=== PATIENT | female | born 1955 | race Caucasian/White ===

== ENCOUNTER 2023-05-20 17:23 | Emergency (ER) | payer MEDICARE, SELFPAY ==
--- NOTE | 2023-05-20 17:33 | ED.URI ---
HPI - URI/Sore Throat General Chief Complaint: Upper Respiratory Infection Stated Complaint: Cough,Congestion Time Seen by Provider: 05/20/23 17:38 Source: patient, RN notes reviewed and old records reviewed Mode of arrival: ambulatory Limitations: no limitations History of Present Illness HPI Narrative: 68-year-old female presents to the [facility] with complaints of cough and congestion for 1-2 days. Has not had to use her albuterol. Denies shortness of breath. Does use her Dulera as prescribed States she does have Flonase at home but has not been using it. Denies fever Offered flu and COVID testing, patient declined Offer chest x-ray, patient declined Onset (ago): day(s) (1-2) Related Data Home Medications Medication Instructions Recorded Confirmed albuterol sulfate 90 mcg/actuation 2 puff inhalation PRN PRN 05/20/23 05/20/23 aerosol inhaler Shortness Of Breath Or Wheezing alendronate 70 mg tablet 70 mg PO DAILY 05/20/23 05/20/23 alprazolam 0.5 mg tablet 0.5 mg PO DAILY 05/20/23 05/20/23 bupropion HCl 300 mg 24 hr tablet, 300 mg PO DAILY 05/20/23 05/20/23 extended release estradiol 0.01% (0.1 mg/gram) 1 applic vaginal DAILY 05/20/23 05/20/23 vaginal cream mometasone-formoterol HFA 200 2 puff inhalation BID 05/20/23 05/20/23 mcg-5 mcg/actuation aerosol inhaler (Dulera) montelukast 10 mg tablet 10 mg PO HS 05/20/23 05/20/23 suvorexant 10 mg tablet (Belsomra) 10 mg PO HS 05/20/23 05/20/23 zolpidem 5 mg tablet 5 mg PO HS 05/20/23 05/20/23 Allergies Allergy/AdvReac Type Severity Reaction Status Date / Time No Known Allergies Allergy Verified 05/20/23 17:29 Review of Systems Review of Systems: All systems reviewed & are unremarkable except as noted in HPI and below Constitutional: Constitutional: Reports no additional constitutional complaints Eyes: Eyes: Reports no additional eye complaints ENT: Reports system reviewed and no additional complaints, except as documented Cardiovascular: Cardiovascular: Reports no additional cardiovascular complaints, Denies chest pain and Denies dyspnea Respiratory: Respiratory: Reports as per HPI, Denies chest congestion, Reports cough and Denies dyspnea Gastrointestinal: Gastrointestinal: Reports no additional gastrointestinal complaints, Denies abdominal pain, Denies nausea and Denies vomiting Musculoskeletal: Musculoskeletal: Reports no additional musculoskeletal complaints Integumentary/Breasts: Skin/Breast: Reports system reviewed and no additional complaints, except as docu Neurologic: Reports system reviewed and no additional complaints, except as documented Psychiatric: Psychiatric: Reports no additional psychiatric complaints Allergic/Immunologic: Allergic/Immunologic: Reports no additional allergic/immunologic complaints [facility] Past Medical History Medical History (Updated 05/20/23 @ 19:35 by Sarah Humphries, KEV) Anxiety Asthma Comments At the time of my signature, I reviewed and agree with the nursing past medical, surgical, social, and family history. There is no relevant family history pertinent to the patient complaint. Exam Const: General: cooperative, healthy appearing, comfortable, no acute distress, well developed, alert and well nourished Nutritional Appearance: well nourished Orientation/consciousness: patient oriented x3 Limitations: no limitations HENMT: Head: normal to inspection Ears: hearing grossly normal bilaterally, external ears normal, TM's normal bilaterally, EAC's normal and mastoids normal Face/Nose/Sinus: Normal external nose present, Normal nares present, Normal nasal mucous membranes and turbinates present, normal facial exam and face symmetric Face and sinus: normal facial exam, sinuses nontender and face symmetric Mouth: Yes Normal oral and palatal mucosa present, Yes lip normal, Yes tongue normal and Yes moist mucous membranes Throat: posterior oropharynx normal and uvula midline Eyes: General: appearance n
[2023-05-20 17:36] VITALS: BP 156/76; PULSE 93; RESP 18; TEMP 37.1; O2SAT 99
== END 2023-05-20 17:51 | disposition home or self-care (01) ==
PROVIDERS: Emergency Provider Nurse Practitioner; PCP Hospitalist
DX: J40 Bronchitis, not specified as acute or chronic (principal); Z79.899 Other long term (current) drug therapy
CPT/HCPCS: 99203; G0463

== ENCOUNTER 2024-01-27 15:21 | Emergency (ER) | payer MEDICARE, SELFPAY ==
[2024-01-27 15:37] VITALS: BP 130/67; PULSE 81; RESP 14; TEMP 37; O2SAT 97
--- NOTE | 2024-01-27 17:09 | ED.EYEPROB ---
HPI - Eye Problem General Chief complaint: Eye Problems Stated complaint: left eye red,itches,watering Time Seen by Provider: 01/27/24 15:45 Source: patient and RN notes reviewed Mode of arrival: ambulatory Limitations: no limitations History of Present Illness HPI Narrative: Patient presents today complaining of a 3 day history of left eye redness, itching and watering. Denies pain, foreign body sensation, vision changes. She has been using an old antibiotic drops, does not know the name, as well as an [id number] antihistamine drops, does not know the name. States neither of these are providing any relief. Related Data Home Medications Medication Instructions Recorded Confirmed albuterol sulfate 90 mcg/actuation 2 puff inhalation PRN PRN 05/20/23 01/27/24 aerosol inhaler Shortness Of Breath Or Wheezing alendronate 70 mg tablet 70 mg PO DAILY 05/20/23 01/27/24 alprazolam 0.5 mg tablet 0.5 mg PO DAILY 05/20/23 01/27/24 estradiol 0.01% (0.1 mg/gram) 1 applic vaginal DAILY 05/20/23 01/27/24 vaginal cream mometasone-formoterol HFA 200 2 puff inhalation BID 05/20/23 01/27/24 mcg-5 mcg/actuation aerosol inhaler (Dulera) montelukast 10 mg tablet 10 mg PO HS 05/20/23 01/27/24 bupropion HCl 150 mg 24 hr tablet, 150 mg PO DAILY 01/27/24 01/27/24 extended release lemborexant 5 mg tablet (Dayvigo) 5 mg PO DAILY 01/27/24 01/27/24 Allergies Allergy/AdvReac Type Severity Reaction Status Date / Time No Known Allergies Allergy Verified 01/27/24 15:24 Review of Systems Review of Systems: CONSTITUTIONAL: Denies body aches, fever, chills, or sweats. EYES: Denies visual changes, discharge.+ left eye redness, itching, and tearing ENT: Denies rhinorrhea, congestion, sore throat, or otalgia. CARDIOVASCULAR: Denies chest pain, palpitations, or edema. RESPIRATORY: Denies cough or dyspnea. GASTROINTESTINAL: Denies abdominal pain, nausea, vomiting, or diarrhea. GENITOURINARY: Denies dysuria or hematuria. SKIN: Denies rash, itching, or wounds. MUSCULOSKELETAL: Denies back pain, joint pain, or myalgia. NEUROLOGIC: Denies headache, numbness, tingling, or weakness. PSYCH: Denies depression or anxiety. [facility] Past Medical History Medical History Anxiety Asthma Comments At time of signature, I have reviewed and agree with nursing past medical, surgical, social and family history unless otherwise noted. Please see nursing chart for further information. There is no relevant family history pertinent to the presenting complaint Exam Narrative: GENERAL: Well-appearing, well-nourished, and in no acute distress. HEAD: Normocephalic, atraumatic. EYES: EOMI. PERRL. Right eye normal. Left eye: mildly injected conjunctiva with mild chemosis. No drainage noted. Irritation of the lower eyelid. Moderate tearing. False upper eyelashes noted. ENT: Mucous membranes pink and moist. NECK: Normal AROM. CHEST: No respiratory distress. EXTREMITIES: Normal range of motion. No edema. SKIN: Warm, dry, no rash. Capillary refill normal. Normal skin turgor. NEURO: No focal deficits. Alert and oriented x3. Gait steady. PSYCH: Normal affect. No signs of depression or anxiety. Course Course Level of Care: Express Care Visit Vital Signs Vital signs: Vital Signs Temperature 98.6 F 01/27/24 15:37 Pulse Rate 81 01/27/24 15:37 Respiratory Rate 14 01/27/24 15:37 Blood Pressure 130/67 01/27/24 15:37 Pulse Oximetry 97 01/27/24 15:37 Oxygen Delivery Room Air 01/27/24 15:37 Temperature 98.6 F 01/27/24 15:37 Pulse Rate 81 01/27/24 15:37 Respiratory Rate 14 01/27/24 15:37 Blood Pressure 130/67 01/27/24 15:37 Pulse Oximetry 97 01/27/24 15:37 Oxygen Delivery Room Air 01/27/24 15:37 Reviewed MDM - Eye Problem MDM Narrative Medical decision making narrative: Symptoms likely due to allergic conjunctivitis. Prescription
== END 2024-01-27 16:06 | disposition home or self-care (01) ==
PROVIDERS: Emergency Provider Nurse Practitioner; PCP Hospitalist
DX: H10.12 Acute atopic conjunctivitis, left eye (principal); J45.909 Unspecified asthma, uncomplicated; F41.9 Anxiety disorder, unspecified
CPT/HCPCS: 99213; G0463

== ENCOUNTER 2024-02-20 15:09 | Emergency (ER) | payer MEDICARE, SELFPAY ==
--- NOTE | 2024-02-20 15:20 | ED.SKABFB ---
HPI - Skin/Abscess/Foreign Bdy General Chief complaint: Skin/Abscess/Foreign Body Stated complaint: bite on right arm Time Seen by Provider: 02/20/24 15:20 Source: patient Mode of arrival: ambulatory Limitations: no limitations History of Present Illness HPI narrative: 68 yo F presents with c/o insect bite to R forearm for 3 days. No itching. Concerned for spider bite. Apply steroid cream with no relief. all systems reviewed and negative except as noted above. Related Data Home Medications Medication Instructions Recorded Confirmed albuterol sulfate 90 mcg/actuation 2 puff inhalation PRN PRN 05/20/23 01/27/24 aerosol inhaler Shortness Of Breath Or Wheezing alendronate 70 mg tablet 70 mg PO DAILY 05/20/23 01/27/24 alprazolam 0.5 mg tablet 0.5 mg PO DAILY 05/20/23 01/27/24 estradiol 0.01% (0.1 mg/gram) 1 applic vaginal DAILY 05/20/23 01/27/24 vaginal cream mometasone-formoterol HFA 200 2 puff inhalation BID 05/20/23 01/27/24 mcg-5 mcg/actuation aerosol inhaler (Dulera) montelukast 10 mg tablet 10 mg PO HS 05/20/23 01/27/24 bupropion HCl 150 mg 24 hr tablet, 150 mg PO DAILY 01/27/24 01/27/24 extended release lemborexant 5 mg tablet (Dayvigo) 5 mg PO DAILY 01/27/24 01/27/24 suvorexant 15 mg tablet (Belsomra) mg PO 02/20/24 Allergies Allergy/AdvReac Type Severity Reaction Status Date / Time No Known Allergies Allergy Verified 02/20/24 15:22 Review of Systems Review of Systems: CONSTITUTIONAL: Denies fever, chills, or sweats. EYES: Denies visual changes, redness, or discharge. ENT: Denies rhinorrhea, congestion, sore throat, or otalgia. CARDIOVASCULAR: Denies chest pain, palpitations, or edema. RESPIRATORY: Denies cough or dyspnea. GASTROINTESTINAL: Denies abdominal pain, nausea, vomiting, or diarrhea. GENITOURINARY: Denies dysuria or hematuria. SKIN: Denies rash or itching. Reports insect bite to right forearm. MUSCULOSKELETAL: Denies back pain, joint pain, or myalgia. NEUROLOGIC: Denies headache, numbness, or weakness. PSYCHIATRIC: Denies anxiety or depression. All other systems reviewed are negative, except as documented in HPI. [facility] Past Medical History Medical History Anxiety Asthma Comments At time of signature, agree with nursing past medical, surgical, social and family history. There is no relevant family history pertinent to the presenting complaint. Exam Narrative: GENERAL: This is a well-nourished, well-developed patient, in no apparent distress. HEAD: normocephalic, atraumatic. EYES: PERRL. Sclera clear/white. Vision is grossly intact. EARS: External ears normal NOSE: External nose normal NECK: Neck supple, non-tender without lymphadenopathy, masses or thyromegaly. CARDIOVASCULAR: Regular rate and rhythm without murmurs, gallops, or rubs. RESPIRATORY: Clear to auscultation. Breath sounds equal bilaterally. No wheezes, rales, or rhonchi. SKIN: warm, Dry, intact with no suspicious lesions or rash, good texture and turgor. 2 cm diameter insect bites to posterior aspect of right forearm. Mild erythema. No fluctuance or induration. Scab to center. No necrosis noted. NEURO: awake, alert, and oriented to person, place and time. There were no obvious focal neurologic abnormalities. EXTREMITIES: No joint tenderness, effusion, or edema noted. Course Course Level of Care: Express Care Visit Vital Signs Vital signs: Vital Signs Temperature 36.9 C 02/20/24 15:22 Pulse Rate 87 02/20/24 15:22 Respiratory Rate 16 02/20/24 15:22 Blood Pressure 117/78 02/20/24 15:22 Pulse Oximetry 100 02/20/24 15:22 Oxygen Delivery Room Air 02/20/24 15:22 Temperature 36.9 C 02/20/24 15:27 Pulse Rate 117 H 02/20/24 15:27 Respiratory Rate 16 02/20/24 15:27 Blood Pressure 117/78 02/20/24 15:27 Pulse Oximetry 100 02/20/24 15:27 Oxygen Delivery Room Air 02/20/24 15:27 Reviewed
[2024-02-20 15:22] VITALS: BP 117/78; PULSE 87; RESP 16; TEMP 36.9; O2SAT 100
[2024-02-20 15:27] VITALS: BP 117/78; PULSE 117; RESP 16; TEMP 36.9; O2SAT 100
== END 2024-02-20 15:45 | disposition home or self-care (01) ==
PROVIDERS: Emergency Provider Nurse Practitioner Family; PCP Hospitalist
DX: S50.861A Insect bite (nonvenomous) of right forearm, initial encounter (principal); L08.9 Local infection of the skin and subcutaneous tissue, unspecified; W57.XXXA Bitten or stung by nonvenomous insect and other nonvenomous arthropods, initial encounter; J45.909 Unspecified asthma, uncomplicated; F41.9 Anxiety disorder, unspecified
CPT/HCPCS: 99213; G0463

== ENCOUNTER 2024-11-07 10:34 | Emergency (ER) | payer MEDICARE, SELFPAY ==
--- NOTE | 2024-11-07 10:35 | ED.URI ---
HPI - URI/Sore Throat General Chief Complaint: Upper Respiratory Infection Stated Complaint: cough Time Seen by Provider: 11/07/24 10:35 Source: patient Mode of arrival: ambulatory Limitations: no limitations History of Present Illness HPI Narrative: Amara is a 69-year-old female patient presenting to the clinic today with complaints of a productive cough and chest congestion x3 days. She reports has history of asthma/COPD. Is a productive cough. States she has been wheezing. Denies any chest pain or shortness of breath currently. No fevers. Related Data Home Medications ?Medication ?Instructions ?Recorded ?Confirmed ?Last Taken ?Type albuterol sulfate 90 mcg/actuation 2 puff inhalation PRN PRN 05/20/23 01/27/24 Unknown History aerosol inhaler Shortness Of Breath Or Wheezing alendronate 70 mg tablet 70 mg PO DAILY 05/20/23 01/27/24 Unknown History alprazolam 0.5 mg tablet 0.5 mg PO DAILY 05/20/23 01/27/24 Unknown History estradiol 0.01% (0.1 mg/gram) 1 applic vaginal DAILY 05/20/23 01/27/24 Unknown History vaginal cream mometasone-formoterol HFA 200 2 puff inhalation BID 05/20/23 01/27/24 Unknown History mcg-5 mcg/actuation aerosol inhaler (Dulera) montelukast 10 mg tablet 10 mg PO HS 05/20/23 01/27/24 Unknown History bupropion HCl 150 mg 24 hr tablet, 150 mg PO DAILY 01/27/24 01/27/24 Unknown History extended release lemborexant 5 mg tablet (Dayvigo) 5 mg PO DAILY 01/27/24 01/27/24 Unknown History suvorexant 15 mg tablet (Belsomra) mg PO 02/20/24 Unknown History valacyclovir 1 gram tablet mg 09/16/24 Unknown History Allergies Allergy/AdvReac Type Severity Reaction Status Date / Time Penicillins Allergy Mild Rash Verified 11/07/24 10:52 Review of Systems Review of Systems: Pertinent positives per HPI. Patient denies any fever, chills, rash, headache, visual changes, dizziness, shortness of breath, chest pain, palpitations, nausea, vomiting, diarrhea, constipation, abdominal pain, or any urinary issues. [facility] Past Medical History Medical History Anxiety Asthma Comments At the time of my signature, I reviewed and agree with the nursing past medical, surgical, social, and family history. There is no relevant family history pertinent to the patient complaint. Exam Narrative: General: Well-developed, well nourished, in no apparent distress Head: Normocephalic, atraumatic Eyes: Pupils equally round and reactive to light bilaterally, EOM intact, sclera and conjunctive clear, no discharge, lids normal Ears: TMs intact and clear, ear canals clear, no drainage, grossly hearing normal. Nose: Nares patent, clear discharge, no inflammation, no sinus tenderness. Mouth: Oral pharynx without lesions or masses, good dentition, MMM. Neck: Supple, trachea midline, no enlargement of anterior or posterior cervical nodes, no thyroid masses or goiter palpable. Cardio: Regular rate and rhythm, s1 and s2 normal, no murmur appreciated. Resp: Lung sounds diminished in the bases, no rhonchi, rales, wheezing or rubs Course Course Emergency Course: Portions of this record may have been created with voice recognition software. Level of Care: Express Care Visit Vital Signs Vital signs: Vital Signs Temperature 36.8 C 11/07/24 10:51 Pulse Rate 79 11/07/24 10:51 Respiratory Rate 16 11/07/24 10:51 Blood Pressure 126/67 11/07/24 10:51 Pulse Oximetry 97 11/07/24 10:51 Oxygen Delivery Room Air 11/07/24 10:51 Temperature 36.8 C 11/07/24 10:51 Pulse Rate 79 11/07/24 10:51 Respiratory Rate 16 11/07/24 10:51 Blood Pressure 126/67 11/07/24 10:51 Pulse Oximetry 97 11/07/24 10:51 Oxygen Delivery Room Air 11/07/24 10:51 Vital signs reviewed MDM - URI/Sore Throat MDM Narrative Medical decision making narrative: At the time of visit patient is resting comfortably on the exam table. Patient appears to be nontoxic. Plan: I suspect patient has COPD/asthma exacerbation. Prescription for prednisone and azithromycin was sent to the pharmacy. Supportive measures were discussed with the patient and they voiced understanding discharge instructions and agrees to treatment plan. Return precautions reviewed Differential Diagnosis Differential diagnosis: Likely upper respiratory infection, otitis media, sinusitis, viral infection, bronchitis, influenza, pharyngitis and other (COVID) Discharge Plan Discharge Clinical Impression: Asthma exacerbation in COPD Patient Disposition: Home, Self-Care Condition: Stable Instructions: Antibiotic Form, Asthma (ED) Additional Instructions: Take prescription medications only as prescribed-prednisone and azithromycin Increase fluids and stay well hydrated Tylenol/motrin for pain/fever Flonase and OTC antihistamines as directed Vicks vapor rub to open sinuses Sinus rinses for congestion Cepacol spray, cough drops, throat lozenges, warm tea with honey/lemon, gargle salt water to soothe throat BRAT diet for diarrhea Clear liquids x 24 hours then advance as tolerated for nausea/vomiting Go to the ED if you develop a worsening in your condition- high fever not controlled by Tylenol or Motrin, dehydration, weakness, lethargy, shortness of breath, or chest pain. Follow up with your PCP in 3-5 days if symptoms persist. Patient Language: Persian Prescriptions: New azithromycin 250 mg tablet See Rx Instructions .ROUTE .COMPLEX Qty: 6 0RF Rx Instructions: For 250 mg dose pack: take 500 mg today (day 1), then 250 mg for 4 days (days 2-5) prednisone 20 mg tablet 40 mg PO DAILY 5 Days Qty: 10 0RF No Action alendronate 70 mg tablet 70 mg PO DAILY alprazolam 0.5 mg tablet 0.5 mg PO DAILY montelukast 10 mg tablet 10 mg PO HS estradiol 0.01 % (0.1 mg/gram) cream 1 applic VAGINAL DAILY albuterol sulfate 90 mcg/actuation HFA aerosol inhaler 2 puff INHALATION PRN PRN (Reason: Shortness Of Breath Or Wheezing) Dulera 200-5 mcg/actuation HFA aerosol inhaler 2 puff INHALATION BID bupropion HCl 150 mg tablet extended release 24 hr 150 mg PO DAILY Dayvigo 5 mg tablet 5 mg PO DAILY epinastine 0.05 % drops 1 drp LEFT EYE Q12H PRN (Reason: allergic symptoms) Qty: 5 0RF Belsomra 15 mg tablet PO valacyclovir 1 gram tablet methylprednisolone [Medrol (Francisco J)] 4 mg tablets,dose pack See Rx Instructions .ROUTE .COMPLEX Qty: 21 0RF Rx Instructions: orally per package directions Follow-up/Referrals: Teri,Enmanuel Pedersen Jr., MD [Primary Care Provider] - Time of Disposition: 10:54 Quality NIHSS Nursing Documentation ED NIHSS nursing documentation: reviewed/agree
[2024-11-07 10:51] VITALS: BP 126/67; PULSE 79; RESP 16; TEMP 36.8; O2SAT 97
== END 2024-11-07 11:00 | disposition home or self-care (01) ==
PROVIDERS: Emergency Provider Nurse Practitioner Family; PCP Hospitalist
DX: J44.1 Chronic obstructive pulmonary disease with (acute) exacerbation (principal); F41.9 Anxiety disorder, unspecified
CPT/HCPCS: 99213; G0463

== ENCOUNTER 2024-12-06 09:55 | Emergency (ER) | payer MEDICARE, SELFPAY ==
--- NOTE | ~2024-12-06 | XR_ITS ---
XR chest 2V Ordering provider: Junito Cardozo APRN History: 69 years Female with . cough 3 days hx of copd . Comparison: None. FINDINGS: MEDIASTINUM: The cardiac silhouette is not enlarged. LUNGS: No infiltrates, effusions or pneumothorax. Underlying emphysematous changes. OTHER: No free air under the diaphragm. Degenerative changes of the spine. S-shaped scoliosis. IMPRESSION: No acute cardiopulmonary pathology. Reviewed, dictated and finalized at location A.
[2024-12-06 10:08] VITALS: BP 111/69; PULSE 78; RESP 14; TEMP 37.2; O2SAT 97
[2024-12-06 10:38] LABS: EDCOVIDSCREEN Negative (Negative); EDINFLUASCREEN Negative (Negative); EDINFLUBSCREEN Negative (Negative)
--- NOTE | 2024-12-06 10:47 | ED.URI ---
HPI - URI/Sore Throat General Chief Complaint: Upper Respiratory Infection Stated Complaint: Cough/Eyes Irritation Time Seen by Provider: 12/06/24 10:20 Source: patient and RN notes reviewed Mode of arrival: ambulatory Limitations: no limitations History of Present Illness HPI Narrative: 69-year-old female presents Express Care complaining of upper respiratory symptoms for 3 days. Patient reports productive purulent cough is worse at night when lying flat. Patient also reports a runny nose. Patient says she feels short of breath when she has coughing spells. She denies any chest pain or shortness of breath at rest. Denies any sore throat, ear pain, fevers, body aches, chills. Patient's history is COPD and a formal smoker.. Patient's cough improves she says when she uses her inhaler. Related Data Home Medications ?Medication ?Instructions ?Recorded ?Confirmed ?Last Taken ?Type albuterol sulfate 90 mcg/actuation 2 puff inhalation PRN PRN 05/20/23 01/27/24 Unknown History aerosol inhaler Shortness Of Breath Or Wheezing alendronate 70 mg tablet 70 mg PO DAILY 05/20/23 01/27/24 Unknown History alprazolam 0.5 mg tablet 0.5 mg PO DAILY 05/20/23 01/27/24 Unknown History estradiol 0.01% (0.1 mg/gram) 1 applic vaginal DAILY 05/20/23 01/27/24 Unknown History vaginal cream mometasone-formoterol HFA 200 2 puff inhalation BID 05/20/23 01/27/24 Unknown History mcg-5 mcg/actuation aerosol inhaler (Dulera) montelukast 10 mg tablet 10 mg PO HS 05/20/23 01/27/24 Unknown History bupropion HCl 150 mg 24 hr tablet, 150 mg PO DAILY 01/27/24 01/27/24 Unknown History extended release lemborexant 5 mg tablet (Dayvigo) 5 mg PO DAILY 01/27/24 01/27/24 Unknown History suvorexant 15 mg tablet (Belsomra) mg PO 02/20/24 Unknown History Allergies Allergy/AdvReac Type Severity Reaction Status Date / Time Penicillins Allergy Mild Rash Verified 12/06/24 10:04 Review of Systems Review of Systems: CONSTITUTIONAL: Denies fever, chills, or sweats. EYES: Denies visual changes, redness, or discharge. ENT: Denies rhinorrhea, congestion, sore throat, or otalgia. CARDIOVASCULAR: Denies chest pain, palpitations, or edema. RESPIRATORY: Denies cough or dyspnea. GASTROINTESTINAL: Denies abdominal pain, nausea, vomiting, or diarrhea. GENITOURINARY: Denies dysuria or hematuria. SKIN: Denies rash or itching. MUSCULOSKELETAL: Denies back pain, joint pain, or myalgia. NEUROLOGIC: Denies headache, numbness, or weakness. PSYCHIATRIC: Denies anxiety or depression. All other systems reviewed are negative, except as documented in HPI. [facility] Past Medical History Medical History Anxiety Asthma Comments At the time of my signature, I reviewed and agree with the nursing past medical, surgical, social, and family history. There is no relevant family history pertinent to the patient complaint. Exam Narrative: GENERAL: This is a well-nourished, well-developed adult, in no apparent distress. They are non ill-appearing, nontoxic appearing. HEAD: normocephalic, atraumatic. EYES: Sclera clear/white. Conjunctivae normal bilaterally. Vision is grossly intact. Extraocular movements intact EARS: External ears normal, auditory canals clear and without drainage, TMs normal without perforation. Hearing grossly intact. NOSE: External nose normal with no obvious nasal discharge, nares with redness, no rhinorrhea. THROAT: Mucous membranes moist, posterior pharynx clear without redness or swelling. Uvula midline. No exudate. NECK: Neck supple, non-tender without lymphadenopathy, masses or thyromegaly. CARDIOVASCULAR: Regular rate and rhythm without murmurs, gallops, or rubs. RESPIRATORY: Diminished to the left lower lobe. Left upper lobe is clear, right lung is clear to auscultation. No wheezes, rales, or rhonchi. Respiratory effort nonlabored. No accessory muscle use or retractions. No respiratory distress SKIN: warm, Dry, intact with no suspicious lesions or rash, good texture and turgor. NEURO: awake, alert, and oriented to person, place and time. There were no obvious focal neurologic abnormalities. EXTREMITIES: No joint tenderness, effusion, or edema noted. Course Course Emergency Course: Patient is aware of diagnosis, understands and agrees to treatment plan. Anticipatory guidance given. Patient agrees to follow-up as directed and is aware of reasons to seek care at the emergency department. Portions of this record may have been created with voice recognition software Level of Care: Express Care Visit Vital Signs Vital signs: Vital Signs Temperature 99 F 12/06/24 10:08 Pulse Rate 78 12/06/24 10:08 Respiratory Rate 14 12/06/24 10:08 Blood Pressure 111/69 12/06/24 10:08 Pulse Oximetry 97 12/06/24 10:08 Oxygen Delivery Room Air 12/06/24 10:08 Temperature 99 F 12/06/24 10:08 Pulse Rate 78 12/06/24 10:08 Respiratory Rate 14 12/06/24 10:08 Blood Pressure 111/69 12/06/24 10:08 Pulse Oximetry 97 12/06/24 10:08 Oxygen Delivery Room Air 12/06/24 10:08 Reviewed MDM - URI/Sore Throat MDM Narrative Medical decision making narrative: Rapid flu and COVID are negative. Patient had diminished lung sounds in the left lower lobe. Chest x-ray was obtained and revealed no evidence of pneumonia or acute cardiopulmonary findings. Given patient's symptoms and her history of COPD will treat empirically with doxycycline and prednisone for purulent bronchitis. Patient has inhaler at home will use it has needed for shortness of breath or wheezing. Discussed physical exam findings. Advised supportive measures and signs/symptoms to go to the ER. Pt is appropriate for outpt treatment and f/u. Differential Diagnosis Differential diagnosis: Likely upper respiratory infection, bronchitis and other (Pneumonia) Lab Data Attestation: I reviewed the patient's lab results. Labs: Lab Results 12/06/24 Range/Units 10:04 POC Influenza A Ag Negative (Negative) POC Influenza B Ag Negative (Negative) POC SARS CoV-2 Ag Negative (Negative) Imaging Data Radiologist's impression: ITS Impressions Chest X-Ray 12/06/24 10:53 IMPRESSION: No acute cardiopulmonary pathology. Critical Care Time Critical Care Time Critical Care Time: No Discharge Plan Discharge Clinical Impression: Purulent bronchitis Patient Disposition: Home Condition: Stable Instructions: Antibiotic Form, Chronic Bronchitis (ED) Additional Instructions: Acute bronchitis can be contagious because it is usually caused by infection with a virus or bacteria. It is usually for a few days but you can be contagious for up to one week. Avoid crowds until you do not have a fever and symptoms are improved Take doxycycline as directed. Please wear sunscreen while outside mild taken doxycycline. Take prednisone as directed. Take this in the morning and take it with food. Recommend Flonase spray and Zyrtec (or Claritin/Iesha) over the counter Cough syrup may cause drowsiness; avoid driving or take it at night time. Tylenol or ibuprofen every 8 hours as needed for pain Symptomatic treatment includes: rest, fluids, and increase humidity of the air at home. Follow up with your primary care provider as needed in 1 week Go to the ER for worsening symptoms or concerns Patient Language: Niuean Prescriptions: New doxycycline monohydrate 100 mg capsule 100 mg PO BID 5 Days Qty: 10 0RF prednisone 50 mg tablet 50 mg PO DAILY 5 Days Qty: 5 0RF No Action alendronate 70 mg tablet 70 mg PO DAILY alprazolam 0.5 mg tablet 0.5 mg PO DAILY montelukast 10 mg tablet 10 mg PO HS estradiol 0.01 % (0.1 mg/gram) cream 1 applic VAGINAL DAILY albuterol sulfate 90 mcg/actuation HFA aerosol inhaler 2 puff INHALATION PRN PRN (Reason: Shortness Of Breath Or Wheezing) Dulera 200-5 mcg/actuation HFA aerosol inhaler 2 puff INHALATION BID bupropion HCl 150 mg tablet extended release 24 hr 150 mg PO DAILY Dayvigo 5 mg tablet 5 mg PO DAILY Belsomra 15 mg tablet PO Follow-up/Referrals: Teri,Enmanuel Pedersen Jr., MD [Primary Care Provider] - Time of Disposition: 11:44
== END 2024-12-06 11:50 | disposition home or self-care (01) ==
PROVIDERS: PCP Hospitalist
DX: J40 Bronchitis, not specified as acute or chronic (principal); Z20.822 Contact with and (suspected) exposure to COVID-19
CPT/HCPCS: 71046; 87426; 87804; 99213; G0463

== ENCOUNTER 2024-12-20 11:00 | Emergency (ER) | payer MEDICARE, SELFPAY ==
--- NOTE | ~2024-12-20 | XR_ITS ---
Clinical Indication: Cough PA and lateral views of the chest: Comparison: 12/06/2024 Findings: The lungs are clear, without evidence of focal consolidation or pleural effusion. Cardiome diastinal silhouette is within normal limits. Bones and soft tissues are unremarkable. Impression: Normal chest. Reviewed, dictated and finalized at location . Impression: Normal chest.
[2024-12-20 11:13] VITALS: BP 128/76; PULSE 90; RESP 20; TEMP 36.6; O2SAT 100
--- NOTE | 2024-12-20 11:22 | ED.GENADULT ---
HPI - General Adult General Chief complaint: Urogenital-Female Stated complaint: urinary issue, fever,cough w/phlegm,chills Time Seen by Provider: 12/20/24 11:22 Source: patient, RN notes reviewed and old records reviewed Mode of arrival: ambulatory Limitations: no limitations History of Present Illness HPI narrative: 69-year-old female presents to the [facility] with concerns for urinary retention, fever of 102 yesterday. States that she has had a productive cough, was evaluated 10 days ago 08/18/2027 was prescribed antibiotics, steroids. Patient reports that she is not any better. Patient states she followed up with her primary care provider but ?they do nothing for her. ? Related Data Home Medications ?Medication ?Instructions ?Recorded ?Confirmed ?Last Taken ?Type albuterol sulfate 90 mcg/actuation 2 puff inhalation PRN PRN 05/20/23 12/20/24 Unknown History aerosol inhaler Shortness Of Breath Or Wheezing alendronate 70 mg tablet 70 mg PO DAILY 05/20/23 12/20/24 Unknown History alprazolam 0.5 mg tablet 0.5 mg PO DAILY 05/20/23 12/20/24 Unknown History estradiol 0.01% (0.1 mg/gram) 1 applic vaginal DAILY 05/20/23 12/20/24 Unknown History vaginal cream mometasone-formoterol HFA 200 2 puff inhalation BID 05/20/23 01/27/24 Unknown History mcg-5 mcg/actuation aerosol inhaler (Dulera) montelukast 10 mg tablet 10 mg PO HS 05/20/23 12/20/24 Unknown History bupropion HCl 150 mg 24 hr tablet, 150 mg PO DAILY 01/27/24 12/20/24 Unknown History extended release lemborexant 5 mg tablet (Dayvigo) 5 mg PO DAILY 01/27/24 01/27/24 Unknown History suvorexant 15 mg tablet (Belsomra) mg PO 02/20/24 Unknown History Allergies Allergy/AdvReac Type Severity Reaction Status Date / Time Penicillins Allergy Mild Rash Verified 12/20/24 11:32 Review of Systems Review of Systems: All systems reviewed & are unremarkable except as noted in HPI and below Constitutional: Constitutional: Reports no additional constitutional complaints ENT: Reports system reviewed and no additional complaints, except as documented Cardiovascular: Cardiovascular: Reports no additional cardiovascular complaints, Denies chest pain and Denies dyspnea Respiratory: Respiratory: Reports as per HPI, Reports chest congestion, Reports cough and Denies dyspnea Genitourinary: Genitourinary: Reports as per HPI Musculoskeletal: Musculoskeletal: Reports no additional musculoskeletal complaints Integumentary/Breasts: Skin/Breast: Reports system reviewed and no additional complaints, except as docu [facility] Past Medical History Medical History Anxiety Asthma Comments At the time of my signature, I reviewed and agree with the nursing past medical, surgical, social, and family history. There is no relevant family history pertinent to the patient complaint. Exam Const: General: cooperative, healthy appearing, comfortable, no acute distress, well developed, alert and well nourished Nutritional Appearance: well nourished Orientation/consciousness: patient oriented x3 Limitations: no limitations HENMT: Head: normal to inspection Ears: hearing grossly normal bilaterally, external ears normal, TM's normal bilaterally, EAC's normal, mastoids normal and no periauricular adenopathy Mouth: Yes Normal oral and palatal mucosa present, Yes lip normal, Yes tongue normal and Yes moist mucous membranes Throat: posterior oropharynx normal, uvula midline and no uvular edema Eyes: General: appearance normal, both eyes and all related structures Alignment and Position: alignment normal Neck: Neck: normal visual inspection, full ROM, no lymphadenopathy and no meningeal signs Chest: Chest palpation & inspection: normal inspection of the chest Resp: Effort & Inspection: normal respiratory effort and able to speak in complete sentences Auscultation: clear to auscultation bilaterally, no crackles, no rales, no rhonchi and wheezes expiratory wheezes and scattered wheezes Cardio: Rate: regular rate GI: GI Palp: No abdominal tenderness : General: Yes no CVA tenderness Skin: General skin exam: normal color and no rashes or lesions noted Neuro: General: patient oriented x3, gait normal, moves all extremities and no meningeal signs Cognition (Neuro): normal cognition Speech: normal speech Gait exam (Neuro): Normal gait present Extrem: General: normal to inspection, full ROM, capillary refill normal and normal gait Psych: Appearance: grossly normal and well kempt Mental Status: mental status grossly normal Speech and movement: Normal speech and movement present and Clear speech present Affect: normal affect Attitude: cooperative Course Course Level of Care: Express Care Visit Vital Signs Vital signs: Vital Signs Temperature 97.8 F 12/20/24 11:13 Pulse Rate 90 12/20/24 11:13 Respiratory Rate 20 12/20/24 11:13 Blood Pressure 128/76 12/20/24 11:13 Pulse Oximetry 100 12/20/24 11:13 Oxygen Delivery Room Air 12/20/24 11:13 Temperature 97.8 F 12/20/24 11:13 Pulse Rate 90 12/20/24 11:13 Respiratory Rate 20 12/20/24 11:13 Blood Pressure 128/76 12/20/24 11:13 Pulse Oximetry 100 12/20/24 11:13 Oxygen Delivery Room Air 12/20/24 11:13 Reviewed Medical Decision Making MDM Narrative Medical decision making narrative: Patient sitting in exam room. Patient presents with continued cough and chest congestion since being evaluated 10 days ago. Patient also concern for some urinary retention and fevers. Denies any abdominal pain, chest pain, shortness of breath. Urine dip does not show signs of a UTI. Chest x-ray negative Patient appropriate for outpatient treatment of bronchitis, states she has enough albuterol at home. Discharge instructions reviewed with patient, as well as provided in writing per nursing staff. The instructions also include specific and strict return/GO TO THE ER as well as f/u information. All questions have been answered, and the patient deny any further questions with discharge and discharge plan. Some parts of this dictation were generated by voice recognition software and may contain typographical and/or grammatical inaccuracies. Differential Diagnosis Differential Diagnosis: Bronchitis, URI, UTI, Medical Records Medical records reviewed: Yes I reviewed the external patient's medical records. Vital Signs Vital Signs: Vital Signs Temperature 97.8 F 12/20/24 11:13 Pulse Rate 90 12/20/24 11:13 Respiratory Rate 20 12/20/24 11:13 Blood Pressure 128/76 12/20/24 11:13 Pulse Oximetry 100 12/20/24 11:13 Oxygen Delivery Room Air 12/20/24 11:13 Temperature 97.8 F 12/20/24 11:13 Pulse Rate 90 12/20/24 11:13 Respiratory Rate 20 12/20/24 11:13 Blood Pressure 128/76 12/20/24 11:13 Pulse Oximetry 100 12/20/24 11:13 Oxygen Delivery Room Air 12/20/24 11:13 Reviewed Lab Data Lab results reviewed: Yes I reviewed the patient's lab results. Labs: Lab Results 12/20/24 Range/Units 11:20 POC Urine Color Dark POC Urine Clarity Clear POC Urine pH 5.5 POC Ur Specif Lulu 1.030 POC Urine Protein Negative (Negative) POC Ur Glucose (UA) Negative (Negative) POC Urine Ketones Trace (Negative) POC Urine Blood Negative (Negative) POC Urine Nitrite Negative (Negative) POC Urine Bilirubin Negative (Negative) POC Urine Urobilinogen 0.2 POC U Leukocyte Esteras Negative (Negative) Reviewed Imaging Data Radiologist's impression: Clinical Indication: Cough PA and lateral views of the chest: Comparison: 12/06/2024 Findings: The lungs are clear, without evidence of focal consolidation or pleural effusion. Cardiomediastinal silhouette is within normal limits. Bones and soft tissues are unremarkable. Impression: Normal chest. Critical Care Time Critical Care Time Critical Care Time: No Discharge Plan Discharge Clinical Impression: Wheezing Cough Qualifiers: Cough type: acute Qualified Code(s): R05.1 - Acute cough Patient Disposition: Home Condition: Stable Instructions: Antibiotic Form, Upper Respiratory Infection (ED), Chronic Cough (ED) Additional Instructions: your urine did not show signs of an infection. Your chest x-ray did not show signs of pneumonia Your symptoms are likely due to a viral illness, which is not treated with antibiotics. Typically viral infections last 7-10 days, can linger for couple of weeks. It is very important to treat your symptoms. Drink plenty of water, Gatorade, Pedialyte, ice pops or Jell-O. -Alternate Tylenol and Motrin per package directions for fever or pain. You can alternate every 4 hours -Antihistamine medication such as Zyrtec/Claritin/Iesha during the day can help improve symptoms. -doing daily nasal irrigations can help relieve pressure your sinuses. Things like a Neti pot -Use Flonase twice a day for 5 days then daily to help reduce the inflammation and dry up your sinuses. -You can also use Mucinex. Be sure to drink plenty of water with this medication at least 8 ounces with every dose and it is important to drink 8 to 10 glasses of water per day. Water is a natural decongestant -Eat and drink things that are easy to swallow, like tea or soup, or popsicles. -Oral rinses such as: Salt water gargles and/or may use topical anesthetic (eg. Chloraseptic spray) or lozenges to relieve dryness or throat pain). -Frequent hand washing or hand project superintendent is one of the best ways to prevent spread of infection. -Using a vaporizer or humidifier at night will also help thin secretions and help with coughing up phlegm. -Follow up with primary care provider in 7-10 days if condition is not improving - For new or worsening symptoms go directly to the nearest ER Patient Language: Macedonian Prescriptions: New (DME) Aerochamber MV Spacer See Rx Instructions .Route Qty: 1 0RF Rx Instructions: As directed albuterol sulfate 90 mcg/actuation HFA aerosol inhaler 2 puff inhalation QID PRN (Reason: shortness of breath or wheezing) Qty: 6.7 0RF No Action alendronate 70 mg tablet 70 mg PO DAILY alprazolam 0.5 mg tablet 0.5 mg PO DAILY montelukast 10 mg tablet 10 mg PO HS estradiol 0.01 % (0.1 mg/gram) cream 1 applic VAGINAL DAILY albuterol sulfate 90 mcg/actuation HFA aerosol inhaler 2 puff INHALATION PRN PRN (Reason: Shortness Of Breath Or Wheezing) Dulera 200-5 mcg/actuation HFA aerosol inhaler 2 puff INHALATION BID bupropion HCl 150 mg tablet extended release 24 hr 150 mg PO DAILY Dayvigo 5 mg tablet 5 mg PO DAILY Belsomra 15 mg tablet PO Follow-up/Referrals: Teri,Enmanuel Pedersen Jr., MD [Primary Care Provider] - 1 Week ([facility] care follow up ) Time of Disposition: 12:06
[2024-12-20 11:23] LABS: EDUAAPPEAR Clear; EDUABILI Negative (Negative); EDUABLOOD Negative (Negative); EDUACOLOR1 Dark; EDUAGLUCOSE Negative (Negative); EDUAKETONE Trace (Negative); EDUALEUKO Negative (Negative); EDUANITRATE Negative (Negative); EDUAPH 5.5; EDUAPROTEIN Negative (Negative); EDUAUROBILI 0.2
== END 2024-12-20 12:10 | disposition home or self-care (01) ==
PROVIDERS: Emergency Provider Nurse Practitioner; PCP Hospitalist
DX: R06.2 Wheezing (principal); R05.1 Acute cough; F41.9 Anxiety disorder, unspecified
CPT/HCPCS: 71046; 81003; 99213; G0463

== ENCOUNTER 2025-01-22 10:46 | Emergency (ER) | payer MEDICARE, SELFPAY ==
--- NOTE | ~2025-01-22 | XR_ITS ---
EXAMINATION: XR chest 2V DATE: 01/22/2025 11:15 INDICATION: Shortness of breath and productive cough. Left lower lobe crackles and rhonchi. TECHNIQUE: frontal and lateral views of the chest were obtained. COMPARISON: Chest radiograph dated 12/20/2024 FINDINGS: Bandlike discoid atelectasis/scarring at the lingula. Additional minimal streaky atelectasis at the r ight costophrenic angle. No pulmonary edema, pleural effusion or pneumothorax. Heart size is normal. Breast dextrocurvature with moderate to severe spondylosis. IMPRESSION: 1. Lingular discoid atelectasis/scarring. Reviewed, dictated and finalized at location A.
--- NOTE | 2025-01-22 10:47 | ED.URI ---
HPI - URI/Sore Throat General Chief Complaint: Upper Respiratory Infection Stated Complaint: cough for three days Time Seen by Provider: 01/22/25 10:47 Source: patient Mode of arrival: ambulatory Limitations: no limitations History of Present Illness HPI Narrative: Amara is a 61-year-old female patient presenting to the clinic today with complaints of nasal congestion, shortness of breath, and cough x3 days. Reports that the cough has gotten worse and now is productive with some yellow phlegm. States she does have some shortness of breath times. Denies any chest pain. Has done 2 at home COVID test and both were negative. Denies any fevers, chills, body aches. She is a former smoker. Related Data Home Medications ?Medication ?Instructions ?Recorded ?Confirmed ?Last Taken ?Type albuterol sulfate 90 mcg/actuation 2 puff inhalation PRN PRN 05/20/23 12/20/24 Unknown History aerosol inhaler Shortness Of Breath Or Wheezing alendronate 70 mg tablet 70 mg PO DAILY 05/20/23 12/20/24 Unknown History alprazolam 0.5 mg tablet 0.5 mg PO DAILY 05/20/23 12/20/24 Unknown History estradiol 0.01% (0.1 mg/gram) 1 applic vaginal DAILY 05/20/23 12/20/24 Unknown History vaginal cream mometasone-formoterol HFA 200 2 puff inhalation BID 05/20/23 01/27/24 Unknown History mcg-5 mcg/actuation aerosol inhaler (Dulera) montelukast 10 mg tablet 10 mg PO HS 05/20/23 12/20/24 Unknown History bupropion HCl 150 mg 24 hr tablet, 150 mg PO DAILY 01/27/24 12/20/24 Unknown History extended release lemborexant 5 mg tablet (Dayvigo) 5 mg PO DAILY 01/27/24 01/27/24 Unknown History suvorexant 15 mg tablet (Belsomra) mg PO 02/20/24 Unknown History Allergies Allergy/AdvReac Type Severity Reaction Status Date / Time Penicillins Allergy Mild Rash Verified 01/22/25 10:51 Review of Systems Review of Systems: Pertinent positives per HPI. Patient denies any fever, chills, rash, headache, visual changes, dizziness, chest pain, palpitations, nausea, vomiting, diarrhea, constipation, abdominal pain, or any urinary issues. [facility] Past Medical History Medical History Anxiety Asthma Comments At the time of my signature, I reviewed and agree with the nursing past medical, surgical, social, and family history. There is no relevant family history pertinent to the patient complaint. Exam Narrative: General: Well-developed, well nourished, in no apparent distress Head: Normocephalic, atraumatic Eyes: Pupils equally round and reactive to light bilaterally, EOM intact, sclera and conjunctive clear, no discharge, lids normal Ears: TMs intact and clear, ear canals clear, no drainage, grossly hearing normal. Nose: Nares patent, no discharge, no inflammation, no sinus tenderness. Mouth: Oral pharynx without lesions or masses, good dentition, MMM. Neck: Supple, trachea midline, no enlargement of anterior or posterior cervical nodes, no thyroid masses or goiter palpable. Cardio: Regular rate and rhythm, s1 and s2 normal, no murmur appreciated. Resp: Expiratory rhonchi in the left upper lobe and crackles in the left lower base, right lung clear, no wheezing or rubs Course Course Emergency Course: Portions of this record may have been created with voice recognition software. Level of Care: Express Care Visit Vital Signs Vital signs: Vital Signs Temperature 37.2 C 01/22/25 10:54 Pulse Rate 76 01/22/25 10:54 Respiratory Rate 16 01/22/25 10:54 Blood Pressure 117/66 01/22/25 10:54 Pulse Oximetry 98 01/22/25 10:54 Oxygen Delivery Room Air 01/22/25 10:54 Temperature 37.2 C 01/22/25 10:54 Pulse Rate 76 01/22/25 10:54 Respiratory Rate 16 01/22/25 10:54 Blood Pressure 117/66 01/22/25 10:54 Pulse Oximetry 98 01/22/25 10:54 Oxygen Delivery Room Air 01/22/25 10:54 Vital signs reviewed MDM - URI/Sore Throat MDM Narrative Medical decision making narrative: At the time of visit patient is resting comfortably on the exam table. Patient appears to be nontoxic. Diagnosis: Chest x-ray shows lingular discoid atelectasis. No evidence of pneumonia. Plan: Patient has lingular discoid atelectasis. Will cover the patient for COPD exacerbation/bronchitis. Prescription for prednisone, albuterol inhaler, and azithromycin was sent to the pharmacy. Incentive spirometer was given and encouraged used every 2-4 hours while awake. Supportive measures were discussed with the patient and they voiced understanding discharge instructions and agrees to treatment plan. Return precautions reviewed Differential Diagnosis Differential diagnosis: Likely upper respiratory infection, otitis media, sinusitis, viral infection, bronchitis, influenza, pharyngitis and other (COVID) Imaging Data Radiologist's impression: ITS Impressions Chest X-Ray 01/22/25 11:25 IMPRESSION: 1. Lingular discoid atelectasis/scarring. Discharge Plan Discharge Clinical Impression: Bronchitis, Discoid atelectasis Patient Disposition: Home Condition: Stable Instructions: Antibiotic Form, Acute Bronchitis (ED), Atelectasis (ED) Additional Instructions: Chest x-ray shows lingular discoid atelectasis. No pneumonia Take prescription medications only as prescribed-albuterol inhaler, prednisone, and azithromycin Use incentive spirometer every 2-4 hours while awake Continue current medications Increase fluids and stay well hydrated Tylenol/motrin for pain/fever Flonase and OTC antihistamines as directed Vicks vapor rub to open sinuses Sinus rinses for congestion Cepacol spray, cough drops, throat lozenges, warm tea with honey/lemon, gargle salt water to soothe throat BRAT diet for diarrhea Clear liquids x 24 hours then advance as tolerated for nausea/vomiting Go to the ED if you develop a worsening in your condition- high fever not controlled by Tylenol or Motrin, dehydration, weakness, lethargy, shortness of breath, or chest pain. Follow up with your PCP in 3-5 days if symptoms persist. Patient Language: Mohawk Prescriptions: New azithromycin 250 mg tablet See Rx Instructions .ROUTE .COMPLEX Qty: 6 0RF Rx Instructions: For 250 mg dose pack: take 500 mg today (day 1), then 250 mg for 4 days (days 2-5) albuterol sulfate 90 mcg/actuation HFA aerosol inhaler 2 puff inhalation Q4-6H PRN (Reason: shortness of breath or wheezing) 30 Days Qty: 8.5 0RF prednisone 20 mg tablet 40 mg PO DAILY 5 Days Qty: 10 0RF No Action alendronate 70 mg tablet 70 mg PO DAILY alprazolam 0.5 mg tablet 0.5 mg PO DAILY montelukast 10 mg tablet 10 mg PO HS estradiol 0.01 % (0.1 mg/gram) cream 1 applic VAGINAL DAILY albuterol sulfate 90 mcg/actuation HFA aerosol inhaler 2 puff INHALATION PRN PRN (Reason: Shortness Of Breath Or Wheezing) Dulera 200-5 mcg/actuation HFA aerosol inhaler 2 puff INHALATION BID bupropion HCl 150 mg tablet extended release 24 hr 150 mg PO DAILY Dayvigo 5 mg tablet 5 mg PO DAILY Belsomra 15 mg tablet PO (DME) Aerochamber MV Spacer See Rx Instructions .Route Qty: 1 0RF Rx Instructions: As directed albuterol sulfate 90 mcg/actuation HFA aerosol inhaler 2 puff inhalation QID PRN (Reason: shortness of breath or wheezing) Qty: 6.7 0RF Follow-up/Referrals: Teri,Enmanuel Pedersen Jr., MD [Primary Care Provider] - Stand Alone Forms: Work/School Release IP Time of Disposition: 11:38 Quality NIHSS Nursing Documentation ED NIHSS nursing documentation: reviewed/agree
[2025-01-22 10:54] VITALS: BP 117/66; PULSE 76; RESP 16; TEMP 37.2; O2SAT 98
== END 2025-01-22 11:45 | disposition home or self-care (01) ==
PROVIDERS: Emergency Provider Nurse Practitioner Family; PCP Hospitalist
DX: J40 Bronchitis, not specified as acute or chronic (principal); J98.11 Atelectasis; J45.909 Unspecified asthma, uncomplicated; F41.9 Anxiety disorder, unspecified; Z87.891 Personal history of nicotine dependence
CPT/HCPCS: 71046; 99213; G0463